=== PATIENT | female | born 1975 | race Caucasian/White ===

== ENCOUNTER 2020-04-09 06:41 | Day surgery (SDC) | payer OTHER ==
[~2020-04-09 06:41] MED LIST: AMOXICILLI125 MG/5 M; AVALIDE 300-121 EACH PO; BENICAR HCT 40-1 TA1; GLIMEPIRIDE4 MG; MEDROL4 MG; METFORMIN HCL500 MG; NEURONTIN300 MG PO
== END 2020-04-09 14:50 | disposition home or self-care (01) ==
LOC: CIR.AMB 06:41
PROVIDERS: ATTEND Orthopaedic Surgery Hand Surgery
DX: G56.01 Carpal tunnel syndrome, right upper limb (principal); Z20.822 Contact with and (suspected) exposure to COVID-19